=== PATIENT | female | born 1975 | race Caucasian/White ===

== ENCOUNTER 2017-04-16 07:37 | Emergency (ER) | payer OTHER ==
[2017-04-16 12:26] LABS: ADD MAN DIFF? NO
[2017-04-16 12:30] LABS: ABNORMAL IP MESSAGE 1; BASOPHILS % 1.1 % (0.0-2.0); EOSINOPHILS # 0.1 10^3/ul (0.0-0.5); EOSINOPHILS % 5.2 % (0.0-7.0); HEMATOCRIT 34.9 % (37.0-47.0); HEMOGLOBIN 9.2 g/dl (12.0-16.0); LYMPHOCYTES # 0.5 10^3/ul (0.8-2.9); LYMPHOCYTES % 20.1 % (15.0-51.0); MEAN CORPUSCULAR HEMOGLOBIN 19.9 pg (29.0-33.0); MEAN CORPUSCULAR HGB CONC 26.4 g/dl (32.0-37.0); MEAN CORPUSCULAR VOLUME 75.4 fl (82.0-101.0); MONOCYTE # 0.2 10^3/ul (0.3-0.9); MONOCYTES % 8.2 % (0.0-11.0); NEUTROPHIL # 1.8 10^3/ul (1.6-7.5); PLATELET COUNT 118 10^3/UL (140-415); RED BLOOD COUNT 4.63 10^6/ul (4.20-5.40)
[2017-04-16 12:30] LABS: WHITE BLOOD COUNT 2.7 10^3/ul (4.8-10.8)
[2017-04-16 12:34] LABS: POSITIVE DIFF @See below
[2017-04-16 12:48] LABS: PROTIME 14.4 Sec (11.9-14.9); PT RATIO 1.1
[2017-04-16 12:49] LABS: PARTIAL THROMBOPLASTIN TIME 20.9 Sec (25.0-35.0)
[2017-04-16 12:51] LABS: ALANINE AMINOTRANSFERASE 36 IU/L (13-69); ALBUMIN 4.3 g/dl (3.3-4.9); ALBUMIN/GLOBULIN RATIO 1.02; ALKALINE PHOSPHATASE 142 IU/L (42-121); ANION GAP 14 (8-16); ASPARTATE AMINO TRANSFERASE 57 IU/L (15-46); BILIRUBIN,INDIRECT 0.6 mg/dl (0-1.1); BILIRUBIN,TOTAL 0.6 mg/dl (0.2-1.3); BLOOD UREA NITROGEN 9 mg/dl (7-20); CALCIUM 10.5 mg/dl (8.4-10.2); CARBON DIOXIDE 28 mmol/L (21-31); CHLORIDE 106 mmol/L (97-110); CREATININE 0.76 mg/dl (0.44-1.00); GLUCOSE 87 mg/dl (70-220); POTASSIUM 4.3 mmol/L (3.5-5.1); SODIUM 144 mmol/L (135-144); TOTAL PROTEIN 8.5 g/dl (6.1-8.1)
[2017-04-16] MEDS: LIDOCAINE 1% (MPF) 5 ML VIAL (15:38)
== END 2017-04-16 17:32 | disposition home or self-care (01) ==
LOC: E/R 07:37
DX: R18.8 Other ascites (principal); E03.9 Hypothyroidism, unspecified; R40.2142 Coma scale, eyes open, spontaneous, at arrival to emergency department; R40.2362 Coma scale, best motor response, obeys commands, at arrival to emergency department; R40.2252 Coma scale, best verbal response, oriented, at arrival to emergency department
CPT/HCPCS: 80053; 85025; 85610; 85730; 99285-25

== ENCOUNTER 2017-05-02 10:23 | Emergency (ER) | payer OTHER ==
[2017-05-02 11:58] LABS: ADD MAN DIFF? NO
[2017-05-02 12:08] LABS: WHITE BLOOD COUNT 3.2 10^3/ul (4.8-10.8)
[2017-05-02 12:08] LABS: ABNORMAL IP MESSAGE 1; BASOPHILS % 0.9 % (0.0-2.0); EOSINOPHILS # 0.2 10^3/ul (0.0-0.5); EOSINOPHILS % 4.7 % (0.0-7.0); HEMOGLOBIN 9.7 g/dl (12.0-16.0); LYMPHOCYTES # 0.7 10^3/ul (0.8-2.9); LYMPHOCYTES % 21.8 % (15.0-51.0); MEAN CORPUSCULAR HGB CONC 26.9 g/dl (32.0-37.0); MEAN CORPUSCULAR VOLUME 74.2 fl (82.0-101.0); MEAN PLATELET VOLUME 10.4 fl (7.4-10.4); MONOCYTE # 0.3 10^3/ul (0.3-0.9); MONOCYTES % 9.8 % (0.0-11.0); NEUTROPHILS % 62.2 % (39.0-77.0); PLATELET COUNT 152 10^3/UL (140-415); RED BLOOD COUNT 4.85 10^6/ul (4.20-5.40); RED CELL DISTRIBUTION WIDTH 19.9 % (11.5-14.5)
[2017-05-02 12:14] LABS: POSITIVE DIFF @See below
[2017-05-02 12:26] LABS: INR 1.22; PROTIME 15.6 Sec (11.9-14.9); PT RATIO 1.2
[2017-05-02 12:27] LABS: PARTIAL THROMBOPLASTIN TIME 36.7 Sec (25.0-35.0)
[2017-05-02] MEDS: LIDOCAINE 1% (MPF) 5 ML VIAL (13:37)
== END 2017-05-02 14:13 | disposition home or self-care (01) ==
LOC: E/R 14:13
DX: R18.8 Other ascites (principal)
CPT/HCPCS: 36415; 85025; 85610; 85730; 99285-25

== ENCOUNTER 2017-05-22 14:39 | Emergency (ER) | payer OTHER ==
[2017-05-22 16:30] LABS: PLATELET COUNT 146 10^3/UL (140-415)
[2017-05-22 16:51] LABS: INR 1.09; PROTIME 14.3 Sec (11.9-14.9); PT RATIO 1.1
[2017-05-22 16:52] LABS: PARTIAL THROMBOPLASTIN TIME 37.6 Sec (25.0-35.0)
[2017-05-22] MEDS ORDERED: ALBUMIN HUMAN 25% 50 ML IV (20:00)
[2017-05-22] MEDS: ALBUMIN HUMAN 25% 50 ML IV (20:35)
== END 2017-05-22 21:05 | disposition home or self-care (01) ==
LOC: E/R 14:39
DX: K70.31 Alcoholic cirrhosis of liver with ascites (principal)
CPT/HCPCS: 49083; 85049; 85610; 85730; 96374; 99285-25

== ENCOUNTER 2017-06-07 08:00 | Emergency (ER) | payer OTHER ==
[2017-06-07 12:42] LABS: ADD MAN DIFF? NO
[2017-06-07 12:44] LABS: ABNORMAL IP MESSAGE 1; BASOPHILS % 0.7 % (0.0-2.0); EOSINOPHILS # 0.2 10^3/ul (0.0-0.5); EOSINOPHILS % 5.6 % (0.0-7.0); HEMATOCRIT 34.4 % (37.0-47.0); HEMOGLOBIN 9.4 g/dl (12.0-16.0); LYMPHOCYTES # 0.6 10^3/ul (0.8-2.9); LYMPHOCYTES % 22.7 % (15.0-51.0); MEAN CORPUSCULAR HEMOGLOBIN 20.7 pg (29.0-33.0); MEAN CORPUSCULAR HGB CONC 27.3 g/dl (32.0-37.0); MEAN CORPUSCULAR VOLUME 75.6 fl (82.0-101.0); MEAN PLATELET VOLUME 10.1 fl (7.4-10.4); MONOCYTE # 0.3 10^3/ul (0.3-0.9); MONOCYTES % 11.5 % (0.0-11.0); NEUTROPHIL # 1.6 10^3/ul (1.6-7.5); NEUTROPHILS % 59.1 % (39.0-77.0); PLATELET COUNT 139 10^3/UL (140-415); RED BLOOD COUNT 4.55 10^6/ul (4.20-5.40); RED CELL DISTRIBUTION WIDTH 18.6 % (11.5-14.5)
[2017-06-07 12:44] LABS: WHITE BLOOD COUNT 2.7 10^3/ul (4.8-10.8)
[2017-06-07 12:51] LABS: POSITIVE DIFF @See below
[2017-06-07 13:04] LABS: ALANINE AMINOTRANSFERASE 36 IU/L (13-69); ALBUMIN 4.2 g/dl (3.3-4.9); ALKALINE PHOSPHATASE 140 IU/L (42-121); ANION GAP 13 (8-16); ASPARTATE AMINO TRANSFERASE 68 IU/L (15-46); BILIRUBIN,INDIRECT 0.4 mg/dl (0-1.1); BILIRUBIN,TOTAL 0.4 mg/dl (0.2-1.3); BLOOD UREA NITROGEN 9 mg/dl (7-20); CALCIUM 10.1 mg/dl (8.4-10.2); CARBON DIOXIDE 28 mmol/L (21-31); CHLORIDE 105 mmol/L (97-110); CREATININE 0.75 mg/dl (0.44-1.00); GLUCOSE 94 mg/dl (70-220); POTASSIUM 3.4 mmol/L (3.5-5.1); SODIUM 143 mmol/L (135-144); TOTAL PROTEIN 8.4 g/dl (6.1-8.1)
[2017-06-07 13:06] LABS: INR 1.16; PT RATIO 1.2
[2017-06-07 13:07] LABS: PARTIAL THROMBOPLASTIN TIME 38.5 Sec (25.0-35.0)
[2017-06-07] MEDS: LIDOCAINE 1% (MDV) 10 ML INJ (14:45)
== END 2017-06-07 16:54 | disposition home or self-care (01) ==
LOC: E/R 08:00
DX: K75.4 Autoimmune hepatitis (principal); K74.60 Unspecified cirrhosis of liver
CPT/HCPCS: 36415; 80053; 85025; 85610; 85730; 99285-25

== ENCOUNTER 2017-06-18 13:25 | Day surgery (SDC) | payer OTHER ==
[2017-06-18] MEDS ORDERED: PROPOFOL 20 ML (15:06)
== END 2017-06-18 17:15 | disposition home or self-care (01) ==
LOC: GIL 13:25
DX: I85.00 Esophageal varices without bleeding (principal); I86.4 Gastric varices; R18.8 Other ascites; I50.9 Heart failure, unspecified; J45.909 Unspecified asthma, uncomplicated; M06.9 Rheumatoid arthritis, unspecified; E66.01 Morbid (severe) obesity due to excess calories; Z68.42 Body mass index [BMI] 45.0-49.9, adult
CPT/HCPCS: 43235; 84703

== ENCOUNTER 2017-06-26 07:25 | Emergency (ER) | payer OTHER ==
[2017-06-26 08:41] LABS: ADD MAN DIFF? NO
[2017-06-26 08:45] LABS: ABNORMAL IP MESSAGE 1; EOSINOPHILS # 0.1 10^3/ul (0.0-0.5); EOSINOPHILS % 4.3 % (0.0-7.0); HEMATOCRIT 37.2 % (37.0-47.0); HEMOGLOBIN 10.1 g/dl (12.0-16.0); LYMPHOCYTES # 0.5 10^3/ul (0.8-2.9); LYMPHOCYTES % 17.7 % (15.0-51.0); MEAN CORPUSCULAR HEMOGLOBIN 20.9 pg (29.0-33.0); MEAN CORPUSCULAR HGB CONC 27.2 g/dl (32.0-37.0); MEAN CORPUSCULAR VOLUME 76.9 fl (82.0-101.0); MEAN PLATELET VOLUME 10.7 fl (7.4-10.4); MONOCYTE # 0.3 10^3/ul (0.3-0.9); MONOCYTES % 9.4 % (0.0-11.0); NEUTROPHILS % 67.3 % (39.0-77.0); PLATELET COUNT 148 10^3/UL (140-415); RED BLOOD COUNT 4.84 10^6/ul (4.20-5.40); RED CELL DISTRIBUTION WIDTH 19.9 % (11.5-14.5)
[2017-06-26 09:05] LABS: ALANINE AMINOTRANSFERASE 44 IU/L (13-69); ALBUMIN 4.1 g/dl (3.3-4.9); ALBUMIN/GLOBULIN RATIO 0.91; ALKALINE PHOSPHATASE 144 IU/L (42-121); ANION GAP 15 (8-16); ASPARTATE AMINO TRANSFERASE 77 IU/L (15-46); BILIRUBIN,INDIRECT 0.6 mg/dl (0-1.1); BILIRUBIN,TOTAL 0.6 mg/dl (0.2-1.3); BLOOD UREA NITROGEN 10 mg/dl (7-20); CALCIUM 10.9 mg/dl (8.4-10.2); CARBON DIOXIDE 31 mmol/L (21-31); CHLORIDE 104 mmol/L (97-110); CREATININE 0.84 mg/dl (0.44-1.00); GLUCOSE 104 mg/dl (70-220); LIPASE 100 U/L (23-300); POTASSIUM 3.7 mmol/L (3.5-5.1); SODIUM 146 mmol/L (135-144); TOTAL PROTEIN 8.6 g/dl (6.1-8.1)
[2017-06-26 09:06] LABS: PROTIME 14.4 Sec (11.9-14.9); PT RATIO 1.1
[2017-06-26 09:07] LABS: PARTIAL THROMBOPLASTIN TIME 39.8 Sec (25.0-35.0)
[2017-06-26] MEDS: LIDOCAINE 1% (MDV) 10 ML INJ (10:41)
== END 2017-06-26 11:40 | disposition home or self-care (01) ==
LOC: E/R 07:25
DX: K74.60 Unspecified cirrhosis of liver (principal); I10 Essential (primary) hypertension; E66.9 Obesity, unspecified; E03.9 Hypothyroidism, unspecified
CPT/HCPCS: 36415; 80053; 83690; 85025; 85610; 85730; 99285-25

== ENCOUNTER 2017-07-08 09:19 | Emergency (ER) | payer OTHER ==
[2017-07-08] MEDS: ONDANSETRON (ODT) 4 MG TAB ODT (10:31)
[2017-07-08 10:58] LABS: ADD MAN DIFF? NO
[2017-07-08 11:00] LABS: ABNORMAL IP MESSAGE 1; BASOPHILS % 1.1 % (0.0-2.0); EOSINOPHILS # 0.1 10^3/ul (0.0-0.5); EOSINOPHILS % 3.7 % (0.0-7.0); HEMATOCRIT 36.3 % (37.0-47.0); LYMPHOCYTES # 0.4 10^3/ul (0.8-2.9); LYMPHOCYTES % 16.1 % (15.0-51.0); MEAN CORPUSCULAR HEMOGLOBIN 21.2 pg (29.0-33.0); MEAN CORPUSCULAR HGB CONC 27.5 g/dl (32.0-37.0); MEAN CORPUSCULAR VOLUME 76.9 fl (82.0-101.0); MEAN PLATELET VOLUME 11.5 fl (7.4-10.4); MONOCYTE # 0.3 10^3/ul (0.3-0.9); MONOCYTES % 9.4 % (0.0-11.0); NEUTROPHIL # 1.9 10^3/ul (1.6-7.5); NEUTROPHILS % 69.3 % (39.0-77.0); PLATELET COUNT 136 10^3/UL (140-415); RED BLOOD COUNT 4.72 10^6/ul (4.20-5.40); RED CELL DISTRIBUTION WIDTH 19.4 % (11.5-14.5)
[2017-07-08 11:00] LABS: WHITE BLOOD COUNT 2.7 10^3/ul (4.8-10.8)
[2017-07-08 11:02] LABS: POSITIVE DIFF @See below
[2017-07-08 11:19] LABS: PROTIME 14.4 Sec (11.9-14.9); PT RATIO 1.1
[2017-07-08 11:20] LABS: PARTIAL THROMBOPLASTIN TIME 40.8 Sec (25.0-35.0)
[2017-07-08 11:21] LABS: ALANINE AMINOTRANSFERASE 35 IU/L (13-69); ALBUMIN 3.8 g/dl (3.3-4.9); ALBUMIN/GLOBULIN RATIO 0.86; ALKALINE PHOSPHATASE 151 IU/L (42-121); ANION GAP 14 (8-16); ASPARTATE AMINO TRANSFERASE 77 IU/L (15-46); BILIRUBIN,INDIRECT 0.5 mg/dl (0-1.1); BILIRUBIN,TOTAL 0.5 mg/dl (0.2-1.3); BLOOD UREA NITROGEN 11 mg/dl (7-20); CARBON DIOXIDE 29 mmol/L (21-31); CHLORIDE 104 mmol/L (97-110); CREATININE 0.71 mg/dl (0.44-1.00); GLUCOSE 97 mg/dl (70-220); POTASSIUM 3.7 mmol/L (3.5-5.1); SODIUM 143 mmol/L (135-144); TOTAL PROTEIN 8.2 g/dl (6.1-8.1)
[2017-07-08] MEDS: LIDOCAINE 1% (MDV) 10 ML INJ (12:34)
[2017-07-08] MEDS: morphine 4 MG/ML VIAL IV (14:37)
[2017-07-08] MEDS: ONDANSETRON 4 MG INJ IV (14:37)
== END 2017-07-08 16:01 | disposition home or self-care (01) ==
LOC: E/R 09:19
DX: R18.8 Other ascites (principal); E03.9 Hypothyroidism, unspecified
CPT/HCPCS: 36415; 80053; 85025; 85610; 85730; 96374; 96375; 99285-25

== ENCOUNTER 2017-07-22 09:40 | Emergency (ER) | payer OTHER ==
[2017-07-22 11:30] LABS: ADD MAN DIFF? NO
[2017-07-22 11:37] LABS: ABNORMAL IP MESSAGE 1; BASOPHILS % 1.1 % (0.0-2.0); EOSINOPHILS # 0.1 10^3/ul (0.0-0.5); EOSINOPHILS % 4.8 % (0.0-7.0); HEMATOCRIT 34.2 % (37.0-47.0); HEMOGLOBIN 9.5 g/dl (12.0-16.0); LYMPHOCYTES # 0.4 10^3/ul (0.8-2.9); LYMPHOCYTES % 15.6 % (15.0-51.0); MEAN CORPUSCULAR HEMOGLOBIN 21.9 pg (29.0-33.0); MEAN CORPUSCULAR HGB CONC 27.8 g/dl (32.0-37.0); MEAN PLATELET VOLUME 10.3 fl (7.4-10.4); MONOCYTE # 0.4 10^3/ul (0.3-0.9); NEUTROPHIL # 1.8 10^3/ul (1.6-7.5); NEUTROPHILS % 65.1 % (39.0-77.0); PLATELET COUNT 136 10^3/UL (140-415); POSITIVE DIFF @See below; RED BLOOD COUNT 4.33 10^6/ul (4.20-5.40); RED CELL DISTRIBUTION WIDTH 18.8 % (11.5-14.5)
[2017-07-22 11:37] LABS: WHITE BLOOD COUNT 2.7 10^3/ul (4.8-10.8)
[2017-07-22 11:53] LABS: ANION GAP 13 (8-16); BLOOD UREA NITROGEN 12 mg/dl (7-20); CALCIUM 9.8 mg/dl (8.4-10.2); CARBON DIOXIDE 31 mmol/L (21-31); CHLORIDE 105 mmol/L (97-110); GLUCOSE 107 mg/dl (70-220); POTASSIUM 3.6 mmol/L (3.5-5.1); SODIUM 145 mmol/L (135-144)
[2017-07-22 12:19] LABS: INR 1.16; PT RATIO 1.2
[2017-07-22 12:20] LABS: PARTIAL THROMBOPLASTIN TIME 38.6 Sec (25.0-35.0)
[2017-07-22] MEDS: LIDOCAINE 1% (MDV) 10 ML INJ (15:03)
== END 2017-07-22 15:19 | disposition home or self-care (01) ==
LOC: E/R 09:40
DX: D61.818 Other pancytopenia (principal); R18.8 Other ascites; E03.9 Hypothyroidism, unspecified; R06.02 Shortness of breath
CPT/HCPCS: 80048; 85025; 85610; 85730; 99285-25

== ENCOUNTER 2017-08-08 08:16 | Emergency (ER) | payer OTHER ==
[2017-08-08 10:31] LABS: ADD MAN DIFF? NO
[2017-08-08 10:33] LABS: WHITE BLOOD COUNT 2.8 10^3/ul (4.8-10.8)
[2017-08-08 10:33] LABS: ABNORMAL IP MESSAGE 1; BASOPHILS % 1.1 % (0.0-2.0); EOSINOPHILS # 0.1 10^3/ul (0.0-0.5); EOSINOPHILS % 4.2 % (0.0-7.0); HEMATOCRIT 35.9 % (37.0-47.0); HEMOGLOBIN 10.2 g/dl (12.0-16.0); LYMPHOCYTES # 0.5 10^3/ul (0.8-2.9); MEAN CORPUSCULAR HEMOGLOBIN 22.5 pg (29.0-33.0); MEAN CORPUSCULAR HGB CONC 28.4 g/dl (32.0-37.0); MEAN CORPUSCULAR VOLUME 79.1 fl (82.0-101.0); MEAN PLATELET VOLUME 10.1 fl (7.4-10.4); MONOCYTE # 0.3 10^3/ul (0.3-0.9); NEUTROPHIL # 1.8 10^3/ul (1.6-7.5); PLATELET COUNT 140 10^3/UL (140-415); RED BLOOD COUNT 4.54 10^6/ul (4.20-5.40); RED CELL DISTRIBUTION WIDTH 19.5 % (11.5-14.5)
[2017-08-08 10:36] LABS: POSITIVE DIFF @See below
[2017-08-08 10:50] LABS: ALANINE AMINOTRANSFERASE 37 IU/L (13-69); ALKALINE PHOSPHATASE 171 IU/L (42-121); ANION GAP 15 (8-16); ASPARTATE AMINO TRANSFERASE 79 IU/L (15-46); BILIRUBIN,INDIRECT 0.8 mg/dl (0-1.1); BILIRUBIN,TOTAL 0.8 mg/dl (0.2-1.3); BLOOD UREA NITROGEN 11 mg/dl (7-20); CALCIUM 10.4 mg/dl (8.4-10.2); CARBON DIOXIDE 29 mmol/L (21-31); CHLORIDE 106 mmol/L (97-110); CREATININE 0.79 mg/dl (0.44-1.00); GLUCOSE 92 mg/dl (70-220); LIPASE 102 U/L (23-300); POTASSIUM 4.1 mmol/L (3.5-5.1); SODIUM 146 mmol/L (135-144); TOTAL PROTEIN 8.4 g/dl (6.1-8.1)
[2017-08-08 11:28] LABS: INR 1.11; PROTIME 14.5 Sec (11.9-14.9); PT RATIO 1.1
[2017-08-08 11:29] LABS: PARTIAL THROMBOPLASTIN TIME 37.7 Sec (25.0-35.0)
[2017-08-08] MEDS: LIDOCAINE 1% (MDV) 10 ML INJ (13:07)
== END 2017-08-08 13:37 | disposition home or self-care (01) ==
LOC: E/R 08:16
DX: K74.60 Unspecified cirrhosis of liver (principal); R18.8 Other ascites; D72.819 Decreased white blood cell count, unspecified; E66.01 Morbid (severe) obesity due to excess calories; E03.9 Hypothyroidism, unspecified; Z68.43 Body mass index [BMI] 50.0-59.9, adult
CPT/HCPCS: 36415; 80053; 83690; 85025; 85610; 85730; 99285-25

== ENCOUNTER 2017-08-19 08:51 | Emergency (ER) | payer OTHER ==
[2017-08-19] MEDS: ONDANSETRON 4 MG INJ IV (09:46)
[2017-08-19] MEDS: morphine 4 MG/ML VIAL IV (09:47)
[2017-08-19 09:54] LABS: ADD MAN DIFF? NO
[2017-08-19 10:01] LABS: ABNORMAL IP MESSAGE 1; BASOPHILS % 1.1 % (0.0-2.0); EOSINOPHILS # 0.1 10^3/ul (0.0-0.5); EOSINOPHILS % 4.9 % (0.0-7.0); HEMATOCRIT 37.8 % (37.0-47.0); HEMOGLOBIN 10.9 g/dl (12.0-16.0); LYMPHOCYTES # 0.6 10^3/ul (0.8-2.9); LYMPHOCYTES % 19.8 % (15.0-51.0); MEAN CORPUSCULAR HEMOGLOBIN 22.7 pg (29.0-33.0); MEAN CORPUSCULAR HGB CONC 28.8 g/dl (32.0-37.0); MEAN CORPUSCULAR VOLUME 78.6 fl (82.0-101.0); MEAN PLATELET VOLUME 10.2 fl (7.4-10.4); MONOCYTE # 0.2 10^3/ul (0.3-0.9); MONOCYTES % 8.5 % (0.0-11.0); NEUTROPHIL # 1.9 10^3/ul (1.6-7.5); NEUTROPHILS % 65.3 % (39.0-77.0); PLATELET COUNT 144 10^3/UL (140-415); RED BLOOD COUNT 4.81 10^6/ul (4.20-5.40); RED CELL DISTRIBUTION WIDTH 18.7 % (11.5-14.5)
[2017-08-19 10:01] LABS: WHITE BLOOD COUNT 2.8 10^3/ul (4.8-10.8)
[2017-08-19 10:02] LABS: POSITIVE DIFF @See below
[2017-08-19 10:18] LABS: ALANINE AMINOTRANSFERASE 31 IU/L (13-69); ALBUMIN 3.8 g/dl (3.3-4.9); ALBUMIN/GLOBULIN RATIO 0.88; ALKALINE PHOSPHATASE 140 IU/L (42-121); ASPARTATE AMINO TRANSFERASE 70 IU/L (15-46); BILIRUBIN,INDIRECT 0.9 mg/dl (0-1.1); BILIRUBIN,TOTAL 0.9 mg/dl (0.2-1.3); BLOOD UREA NITROGEN 9 mg/dl (7-20); CALCIUM 10.2 mg/dl (8.4-10.2); CARBON DIOXIDE 28 mmol/L (21-31); CHLORIDE 107 mmol/L (97-110); CREATININE 0.72 mg/dl (0.44-1.00); GLUCOSE 86 mg/dl (70-220); SODIUM 142 mmol/L (135-144); TOTAL PROTEIN 8.1 g/dl (6.1-8.1)
[2017-08-19 10:32] LABS: ANION GAP 11 (8-16)
[2017-08-19 10:35] LABS: POTASSIUM 4.3 mmol/L (3.5-5.1)
[2017-08-19 10:40] LABS: INR 1.09; PROTIME 14.2 Sec (11.9-14.9); PT RATIO 1.1
[2017-08-19 10:41] LABS: PARTIAL THROMBOPLASTIN TIME 40.9 Sec (25.0-35.0)
[2017-08-19] MEDS: ALBUMIN HUMAN 25% 100 ML IV (11:29)
[2017-08-19] MEDS: LIDOCAINE 1% (MDV) 10 ML INJ (12:43)
== END 2017-08-19 14:15 | disposition home or self-care (01) ==
LOC: E/R 08:51
DX: G43.009 Migraine without aura, not intractable, without status migrainosus (principal); E03.9 Hypothyroidism, unspecified; R10.9 Unspecified abdominal pain; Z87.19 Personal history of other diseases of the digestive system
CPT/HCPCS: 80053; 85025; 85610; 85730; 96374; 96375; 99285-25

== ENCOUNTER 2017-09-09 08:11 | Emergency (ER) | payer OTHER ==
[2017-09-09 08:54] LABS: ADD MAN DIFF? NO
[2017-09-09 08:55] LABS: ABNORMAL IP MESSAGE 1; BASOPHILS % 0.8 % (0.0-2.0); EOSINOPHILS # 0.1 10^3/ul (0.0-0.5); EOSINOPHILS % 3.7 % (0.0-7.0); HEMOGLOBIN 10.5 g/dl (12.0-16.0); LYMPHOCYTES # 0.5 10^3/ul (0.8-2.9); LYMPHOCYTES % 18.7 % (15.0-51.0); MEAN CORPUSCULAR HEMOGLOBIN 22.7 pg (29.0-33.0); MEAN CORPUSCULAR HGB CONC 28.4 g/dl (32.0-37.0); MEAN CORPUSCULAR VOLUME 79.9 fl (82.0-101.0); MEAN PLATELET VOLUME 10.1 fl (7.4-10.4); MONOCYTE # 0.2 10^3/ul (0.3-0.9); MONOCYTES % 9.8 % (0.0-11.0); NEUTROPHIL # 1.6 10^3/ul (1.6-7.5); NEUTROPHILS % 66.6 % (39.0-77.0); PLATELET COUNT 130 10^3/UL (140-415); RED BLOOD COUNT 4.63 10^6/ul (4.20-5.40); RED CELL DISTRIBUTION WIDTH 18.8 % (11.5-14.5)
[2017-09-09 08:55] LABS: WHITE BLOOD COUNT 2.5 10^3/ul (4.8-10.8)
[2017-09-09 08:56] LABS: POSITIVE DIFF @See below
[2017-09-09 09:20] LABS: INR 1.09; PROTIME 14.3 Sec (11.9-14.9); PT RATIO 1.1
[2017-09-09 09:21] LABS: PARTIAL THROMBOPLASTIN TIME 42.1 Sec (25.0-35.0)
[2017-09-09 09:22] LABS: ANION GAP 14 (8-16); BLOOD UREA NITROGEN 9 mg/dl (7-20); CALCIUM 10.3 mg/dl (8.4-10.2); CARBON DIOXIDE 27 mmol/L (21-31); CHLORIDE 108 mmol/L (97-110); CREATININE 0.84 mg/dl (0.44-1.00); GLUCOSE 123 mg/dl (70-220); POTASSIUM 3.7 mmol/L (3.5-5.1); SODIUM 145 mmol/L (135-144)
[2017-09-09] MEDS: LIDOCAINE 1% (MDV) 10 ML INJ (11:26)
== END 2017-09-09 12:46 | disposition home or self-care (01) ==
LOC: E/R 08:11
DX: R18.8 Other ascites (principal); M32.9 Systemic lupus erythematosus, unspecified; K74.60 Unspecified cirrhosis of liver; E03.9 Hypothyroidism, unspecified
CPT/HCPCS: 36415; 80048; 85025; 85610; 85730; 99285-25

== ENCOUNTER 2017-09-11 08:56 | Emergency (ER) | payer OTHER ==
[2017-09-11 11:24] LABS: ADD MAN DIFF? NO
[2017-09-11 11:28] LABS: ABNORMAL IP MESSAGE 1; BASOPHILS % 1.1 % (0.0-2.0); EOSINOPHILS # 0.1 10^3/ul (0.0-0.5); EOSINOPHILS % 4.2 % (0.0-7.0); HEMOGLOBIN 10.6 g/dl (12.0-16.0); LYMPHOCYTES # 0.5 10^3/ul (0.8-2.9); LYMPHOCYTES % 18.4 % (15.0-51.0); MEAN CORPUSCULAR HEMOGLOBIN 22.8 pg (29.0-33.0); MEAN CORPUSCULAR HGB CONC 28.6 g/dl (32.0-37.0); MEAN CORPUSCULAR VOLUME 79.6 fl (82.0-101.0); MEAN PLATELET VOLUME 9.7 fl (7.4-10.4); MONOCYTE # 0.4 10^3/ul (0.3-0.9); MONOCYTES % 12.4 % (0.0-11.0); NEUTROPHIL # 1.8 10^3/ul (1.6-7.5); NEUTROPHILS % 63.5 % (39.0-77.0); PLATELET COUNT 141 10^3/UL (140-415); RED BLOOD COUNT 4.65 10^6/ul (4.20-5.40); RED CELL DISTRIBUTION WIDTH 18.9 % (11.5-14.5)
[2017-09-11 11:28] LABS: WHITE BLOOD COUNT 2.8 10^3/ul (4.8-10.8)
[2017-09-11 11:30] LABS: POSITIVE DIFF @See below
[2017-09-11 11:45] LABS: INR 1.17; PROTIME 15.1 Sec (11.9-14.9); PT RATIO 1.2
[2017-09-11 11:46] LABS: ALANINE AMINOTRANSFERASE 32 IU/L (13-69); ALBUMIN 3.8 g/dl (3.3-4.9); ALBUMIN/GLOBULIN RATIO 0.86; ALKALINE PHOSPHATASE 142 IU/L (42-121); ANION GAP 12 (8-16); ASPARTATE AMINO TRANSFERASE 65 IU/L (15-46); BLOOD UREA NITROGEN 11 mg/dl (7-20); CALCIUM 10.5 mg/dl (8.4-10.2); CARBON DIOXIDE 30 mmol/L (21-31); CHLORIDE 107 mmol/L (97-110); CREATININE 0.87 mg/dl (0.44-1.00); GLUCOSE 92 mg/dl (70-220); PARTIAL THROMBOPLASTIN TIME 36.2 Sec (25.0-35.0); POTASSIUM 3.9 mmol/L (3.5-5.1); SODIUM 145 mmol/L (135-144); TOTAL PROTEIN 8.2 g/dl (6.1-8.1)
[2017-09-11] MEDS: LIDOCAINE 1% (MDV) 10 ML INJ (12:19)
== END 2017-09-11 13:05 | disposition home or self-care (01) ==
LOC: E/R 08:56
DX: R18.8 Other ascites (principal); E03.9 Hypothyroidism, unspecified; R06.02 Shortness of breath
CPT/HCPCS: 49083; 80053; 85025; 85610; 85730; 99285-25

== ENCOUNTER 2017-09-16 11:07 | Emergency (ER) | payer OTHER ==
[2017-09-16 12:08] LABS: ADD MAN DIFF? NO
[2017-09-16 12:11] LABS: WHITE BLOOD COUNT 2.9 10^3/ul (4.8-10.8)
[2017-09-16 12:11] LABS: ABNORMAL IP MESSAGE 1; EOSINOPHILS # 0.1 10^3/ul (0.0-0.5); EOSINOPHILS % 4.1 % (0.0-7.0); HEMATOCRIT 38.1 % (37.0-47.0); HEMOGLOBIN 10.8 g/dl (12.0-16.0); LYMPHOCYTES # 0.6 10^3/ul (0.8-2.9); LYMPHOCYTES % 18.8 % (15.0-51.0); MEAN CORPUSCULAR HEMOGLOBIN 22.6 pg (29.0-33.0); MEAN CORPUSCULAR HGB CONC 28.3 g/dl (32.0-37.0); MEAN CORPUSCULAR VOLUME 79.7 fl (82.0-101.0); MEAN PLATELET VOLUME 10.1 fl (7.4-10.4); MONOCYTE # 0.3 10^3/ul (0.3-0.9); MONOCYTES % 10.6 % (0.0-11.0); NEUTROPHIL # 1.9 10^3/ul (1.6-7.5); NEUTROPHILS % 65.2 % (39.0-77.0); PLATELET COUNT 135 10^3/UL (140-415); RED BLOOD COUNT 4.78 10^6/ul (4.20-5.40); RED CELL DISTRIBUTION WIDTH 18.6 % (11.5-14.5)
[2017-09-16 12:17] LABS: POSITIVE DIFF @See below
[2017-09-16 12:34] LABS: ALANINE AMINOTRANSFERASE 42 IU/L (13-69); ALBUMIN 4.3 g/dl (3.3-4.9); ALBUMIN/GLOBULIN RATIO 1.02; ALKALINE PHOSPHATASE 153 IU/L (42-121); ANION GAP 14 (8-16); ASPARTATE AMINO TRANSFERASE 88 IU/L (15-46); BILIRUBIN,INDIRECT 0.8 mg/dl (0-1.1); BILIRUBIN,TOTAL 0.8 mg/dl (0.2-1.3); BLOOD UREA NITROGEN 10 mg/dl (7-20); CALCIUM 10.8 mg/dl (8.4-10.2); CARBON DIOXIDE 30 mmol/L (21-31); CHLORIDE 104 mmol/L (97-110); CREATININE 0.82 mg/dl (0.44-1.00); GLUCOSE 100 mg/dl (70-220); SODIUM 144 mmol/L (135-144); TOTAL PROTEIN 8.5 g/dl (6.1-8.1)
[2017-09-16 12:38] LABS: INR 1.12; PROTIME 14.6 Sec (11.9-14.9); PT RATIO 1.1
[2017-09-16 12:39] LABS: PARTIAL THROMBOPLASTIN TIME 38.8 Sec (25.0-35.0)
== END 2017-09-16 14:35 | disposition home or self-care (01) ==
LOC: E/R 11:07
DX: R18.8 Other ascites (principal); E03.9 Hypothyroidism, unspecified
CPT/HCPCS: 80053; 85025; 85610; 85730; 99283

== ENCOUNTER 2017-10-14 10:55 | Emergency (ER) | payer OTHER ==
[2017-10-14 11:57] LABS: ADD MAN DIFF? NO
[2017-10-14 12:06] LABS: ABNORMAL IP MESSAGE 1; EOSINOPHILS # 0.1 10^3/ul (0.0-0.5); EOSINOPHILS % 4.3 % (0.0-7.0); HEMATOCRIT 36.3 % (37.0-47.0); HEMOGLOBIN 10.4 g/dl (12.0-16.0); LYMPHOCYTES # 0.5 10^3/ul (0.8-2.9); LYMPHOCYTES % 17.5 % (15.0-51.0); MEAN CORPUSCULAR HGB CONC 28.7 g/dl (32.0-37.0); MEAN CORPUSCULAR VOLUME 80.1 fl (82.0-101.0); MEAN PLATELET VOLUME 10.5 fl (7.4-10.4); MONOCYTE # 0.4 10^3/ul (0.3-0.9); MONOCYTES % 11.9 % (0.0-11.0); PLATELET COUNT 131 10^3/UL (140-415); RED BLOOD COUNT 4.53 10^6/ul (4.20-5.40); RED CELL DISTRIBUTION WIDTH 18.6 % (11.5-14.5)
[2017-10-14 12:12] LABS: POSITIVE DIFF @See below
[2017-10-14 12:24] LABS: PARTIAL THROMBOPLASTIN TIME 37.1 Sec (25.0-35.0); PROTIME 14.4 Sec (11.9-14.9); PT RATIO 1.1
[2017-10-14 12:39] LABS: ALANINE AMINOTRANSFERASE 41 IU/L (13-69); ALBUMIN/GLOBULIN RATIO 0.97; ALKALINE PHOSPHATASE 156 IU/L (42-121); ANION GAP 12 (8-16); ASPARTATE AMINO TRANSFERASE 95 IU/L (15-46); BLOOD UREA NITROGEN 11 mg/dl (7-20); CALCIUM 10.6 mg/dl (8.4-10.2); CARBON DIOXIDE 30 mmol/L (21-31); CHLORIDE 102 mmol/L (97-110); CREATININE 0.87 mg/dl (0.44-1.00); GLUCOSE 125 mg/dl (70-220); POTASSIUM 3.1 mmol/L (3.5-5.1); SODIUM 141 mmol/L (135-144); TOTAL PROTEIN 8.1 g/dl (6.1-8.1)
[2017-10-14] MEDS: LIDOCAINE 1% (MPF) 5 ML VIAL (12:59)
== END 2017-10-14 14:25 | disposition home or self-care (01) ==
LOC: E/R 10:55
DX: R18.8 Other ascites (principal); B95.8 Unspecified staphylococcus as the cause of diseases classified elsewhere; E03.9 Hypothyroidism, unspecified; R06.02 Shortness of breath
CPT/HCPCS: 49083; 80053; 85025; 85610; 85730; 99285-25

== ENCOUNTER 2018-01-25 11:24 | Emergency (ER) | payer OTHER ==
[2018-01-25 12:03] LABS: ADD MAN DIFF? NO
[2018-01-25 12:17] LABS: WHITE BLOOD COUNT 2.9 10^3/ul (4.8-10.8)
[2018-01-25 12:17] LABS: ABNORMAL IP MESSAGE 1; BASOPHILS % 0.7 % (0.0-2.0); EOSINOPHILS # 0.1 10^3/ul (0.0-0.5); EOSINOPHILS % 4.8 % (0.0-7.0); HEMATOCRIT 39.7 % (37.0-47.0); HEMOGLOBIN 11.3 g/dl (12.0-16.0); LYMPHOCYTES # 0.4 10^3/ul (0.8-2.9); LYMPHOCYTES % 14.5 % (15.0-51.0); MEAN CORPUSCULAR HGB CONC 28.5 g/dl (32.0-37.0); MEAN CORPUSCULAR VOLUME 80.9 fl (82.0-101.0); MEAN PLATELET VOLUME 10.4 fl (7.4-10.4); MONOCYTE # 0.4 10^3/ul (0.3-0.9); MONOCYTES % 12.5 % (0.0-11.0); NEUTROPHIL # 1.9 10^3/ul (1.6-7.5); NEUTROPHILS % 67.2 % (39.0-77.0); PLATELET COUNT 138 10^3/UL (140-415); RED BLOOD COUNT 4.91 10^6/ul (4.20-5.40); RED CELL DISTRIBUTION WIDTH 15.8 % (11.5-14.5)
[2018-01-25 12:19] LABS: POSITIVE DIFF @See below
[2018-01-25 12:30] LABS: INR 1.09; PROTIME 14.2 Sec (11.9-14.9); PT RATIO 1.1
[2018-01-25 12:34] LABS: ALANINE AMINOTRANSFERASE 31 IU/L (13-69); ALBUMIN 4.4 g/dl (3.3-4.9); ALBUMIN/GLOBULIN RATIO 1.15; ALKALINE PHOSPHATASE 164 IU/L (42-121); AMYLASE 33 U/L (11-123); ANION GAP 10 (5-13); ASPARTATE AMINO TRANSFERASE 66 IU/L (15-46); BILIRUBIN,INDIRECT 0.9 mg/dl (0-1.1); BILIRUBIN,TOTAL 0.9 mg/dl (0.2-1.3); BLOOD UREA NITROGEN 9 mg/dl (7-20); CALCIUM 10.7 mg/dl (8.4-10.2); CARBON DIOXIDE 28 mmol/L (21-31); CHLORIDE 106 mmol/L (97-110); CREATININE 0.58 mg/dl (0.44-1.00); Estimated GFR > 60 mL/min (>60); GLUCOSE 95 mg/dl (70-220); LIPASE 137 U/L (23-300); POTASSIUM 4.4 mmol/L (3.5-5.1); SODIUM 144 mmol/L (135-144); TOTAL PROTEIN 8.2 g/dl (6.1-8.1)
[2018-01-25 12:45] LABS: TROPONIN-I < 0.012 ng/ml (0.000-0.120)
[2018-01-25] MEDS: morphine 4 MG/ML VIAL IV (13:13)
[2018-01-25] MEDS: ONDANSETRON 4 MG INJ IV (13:13)
[2018-01-25] MEDS: FUROSEMIDE 40 MG INJ IV (13:14)
[2018-01-25] MEDS: LIDOCAINE 1% (MPF) 5 ML VIAL (18:16)
== END 2018-01-25 17:18 | disposition home or self-care (01) ==
LOC: E/R 11:24
DX: G43.009 Migraine without aura, not intractable, without status migrainosus (principal); R18.8 Other ascites; E03.9 Hypothyroidism, unspecified; R07.9 Chest pain, unspecified
CPT/HCPCS: 49083; 71045; 80053; 82150; 83690; 84484; 85025; 85610; 85730; 93005; 96374; 96375; 99285-25

== ENCOUNTER 2018-03-06 10:33 | Emergency (ER) | payer OTHER ==
[2018-03-06] MEDS: METOCLOPRAMIDE 10 MG INJ IV (12:35)
[2018-03-06] MEDS: DIPHENHYDRAMINE 50 MG INJ IV (12:35)
[2018-03-06 12:37] LABS: ADD MAN DIFF? NO
[2018-03-06 12:41] LABS: WHITE BLOOD COUNT 2.7 10^3/ul (4.8-10.8)
[2018-03-06 12:41] LABS: ABNORMAL IP MESSAGE 1; BASOPHILS % 0.7 % (0.0-2.0); EOSINOPHILS # 0.1 10^3/ul (0.0-0.5); EOSINOPHILS % 4.1 % (0.0-7.0); HEMATOCRIT 37.6 % (37.0-47.0); HEMOGLOBIN 10.7 g/dl (12.0-16.0); LYMPHOCYTES # 0.4 10^3/ul (0.8-2.9); LYMPHOCYTES % 15.2 % (15.0-51.0); MEAN CORPUSCULAR HEMOGLOBIN 23.3 pg (29.0-33.0); MEAN CORPUSCULAR HGB CONC 28.5 g/dl (32.0-37.0); MEAN CORPUSCULAR VOLUME 81.7 fl (82.0-101.0); MEAN PLATELET VOLUME 10.5 fl (7.4-10.4); MONOCYTE # 0.3 10^3/ul (0.3-0.9); MONOCYTES % 9.7 % (0.0-11.0); NEUTROPHIL # 1.9 10^3/ul (1.6-7.5); NEUTROPHILS % 69.6 % (39.0-77.0); PLATELET COUNT 137 10^3/UL (140-415); RED CELL DISTRIBUTION WIDTH 17.1 % (11.5-14.5)
[2018-03-06 12:45] LABS: POSITIVE DIFF @See below
[2018-03-06 12:59] LABS: ALANINE AMINOTRANSFERASE 33 IU/L (13-69); ALBUMIN 3.9 g/dl (3.3-4.9); ALKALINE PHOSPHATASE 182 IU/L (42-121); ANION GAP 8 (5-13); ASPARTATE AMINO TRANSFERASE 76 IU/L (15-46); BILIRUBIN,INDIRECT 0.7 mg/dl (0-1.1); BILIRUBIN,TOTAL 0.7 mg/dl (0.2-1.3); BLOOD UREA NITROGEN 10 mg/dl (7-20); CALCIUM 10.7 mg/dl (8.4-10.2); CARBON DIOXIDE 26 mmol/L (21-31); CHLORIDE 107 mmol/L (97-110); CREATININE 0.59 mg/dl (0.44-1.00); Estimated GFR > 60 mL/min (>60); GLUCOSE 105 mg/dl (70-220); SODIUM 141 mmol/L (135-144); TOTAL PROTEIN 8.2 g/dl (6.1-8.1)
[2018-03-06 13:00] LABS: PROTIME 14.4 Sec (11.9-14.9); PT RATIO 1.1
[2018-03-06 13:01] LABS: PARTIAL THROMBOPLASTIN TIME 38.7 Sec (23.0-35.0)
[2018-03-06] MEDS: LIDOCAINE 1% (MPF) 5 ML VIAL (13:11)
== END 2018-03-06 15:48 | disposition home or self-care (01) ==
LOC: E/R 10:33
DX: R14.0 Abdominal distension (gaseous) (principal); E03.9 Hypothyroidism, unspecified; R18.8 Other ascites; G43.909 Migraine, unspecified, not intractable, without status migrainosus; Z48.817 Encounter for surgical aftercare following surgery on the skin and subcutaneous tissue
CPT/HCPCS: 80053; 85025; 85610; 85730; 96374; 96375; 99285-25

== ENCOUNTER 2018-03-25 11:44 | Emergency (ER) | payer OTHER ==
[2018-03-25] MEDS: LIDOCAINE 1% (MPF) 5 ML VIAL (14:16)
== END 2018-03-25 15:55 | disposition home or self-care (01) ==
LOC: E/R 11:44
DX: R18.8 Other ascites (principal); E03.9 Hypothyroidism, unspecified
CPT/HCPCS: 49083; 71045; 99285-25